=== PATIENT | female | born 1975 | race Caucasian/White ===

== ENCOUNTER 2016-09-22 07:02 | Emergency (ER) | payer OTHER ==
--- NOTE | 2016-09-22 10:18 | DIAGNOSTIC IMAGING REPORT ---
PROCEDURE: ABDOMEN/PELVIS WITH CONTRAST CLINICAL INDICATION: ABDOMINAL PAIN TECHNIQUE: 125 ml of Isovue 300 were injected intravenously and axial images were obtained of the abdomen and pelvis with sagittal and coronal reformations. COMPARISON: 03/04/2016 FINDINGS: ABDOMEN: Minor bibasilar atelectasis. Normal sized heart. No hiatal hernia. The liver, gallbladder, adrenal glands, kidneys, pancreas and spleen are normal. The abdominal aorta is normal in its course and caliber. No atherosclerosis. There are no suspicious calcifications, retroperitoneal adenopathy or masses. The stomach, upper bowel loops, and mesentery are normal. Intact anterior abdominal wall. Much of the descending colon just distal to the splenic flexure, into the proximal sigmoid colon demonstrates decompression, mild wall edema, minor pericolonic inflammatory changes and slight mucosal hyperemia. There is trace fascial thickening of the left pericolic gutter. No extraluminal gas or free fluid. No pericolonic fluid collection. There is a small amount of liquid stool in the rectum. PELVIS: The appendix and pelvic small bowel loops are normal. Normal amount of stool in the proximal colon in liquid stool in the rectum as described. The uterus, ovaries, urinary bladder, and pelvic vessels are normal. No adenopathy, free fluid, or pelvic mass. Mild degenerative changes in the lumbar facet joints and L5-S1 disc space. IMPRESSION: 1. Findings of mild left-sided colitis without focal diverticulitis. No evidence of complication (perforation, free fluid, or abscess). This is likely mild infectious colitis. 2. Discussed with Dr. Rolon in the emergency room. All CT scans at this facility use dose modulation, iterative reconstruction, and/or weight-based dosing when appropriate to reduce radiation dose to as low as reasonably achievable.
--- NOTE | 2016-09-22 10:33 | ED CLINICAL REPORT ---
Clinical Report - Physicians/Mid Levels [facility] [address] [place] [address] 09/22/2016 7:03 Patient: ALICE FERNANDEZ Time Seen: 07:18. Arrived- By private vehicle. Historian- patient. CPT: ER phys charges level 4 (#[id number]). HISTORY OF PRESENT ILLNESS Chief Complaint: ABDOMINAL PAIN. At its maximum, severity described as 10 / 10. When seen in the E.D., severity described as 9 / 10. Modifying factors- relieved by rest. This started last night and is still present. It was abrupt in onset and has been constant. It is described as "like gas pains" and it is described as located in the right flank and the left lower quadrant and in the lower abdomen and radiating to the low back. The patient has had nausea. She has had vomiting. The vomiting has occurred numerous times. No blood-tinged emesis or coffee-grounds emesis. She has had loose stools (last night). This has occurred only once. No bloody diarrhea. Similar symptoms previously: None. Recent medical care: Not recently seen/assessed. REVIEW OF SYSTEMS Last normal menstrual period was 3 weeks ago. 2. Para 1. Abortions 1. No fever, sore throat, chest pain or pain or difficulty breathing. No cough, joint pain, skin rash, chills or back pain. No fever, calf pain, cough, difficulty breathing or pedal edema. No palpitations, black stools, bloody stools or urinary problems. The patient has had chills and experienced sweats. All systems otherwise negative, except as recorded above. PAST HISTORY Primary physician ([place] [facility] Problems: Pharyngitis. Nausea. Influenza. Dental Abscess. Chest Wall Pain. Contusion. Dental Pain. Lifestyle / Substance Problems. Gastroenteritis. Gastritis. Vomiting. Diarrhea. Gastroesophageal Reflux. Peptic Ulcer Disease. Pneumonia. Bronchitis. Sinusitis. Otitis Media. Abdominal Pain. Skin Rash. Dental Caries. Corneal Abrasion. UTI - Urinary Tract Infection. Back Pain. Ovarian Cancer. Additional Surgeries: Cone biopsy. Dilatation & Curettage. Left eye surgery. Medications: None. Allergies: Codeine. Penicillins. SOCIAL HISTORY Current every day heavy tobacco smoker (cigarette)- 1-2 packs per day. History of drug use: methamphetamines, marijuana. Residence: [place]. FAMILY HISTORY maternal grandmother and mother had "ruptured bowels". ADDITIONAL NOTES The nursing notes have been reviewed. PHYSICAL EXAM Vital Signs: 09/22/2016 07:09 BP: 149/93. HR: 81. RR: 18. O2 saturation: 100%. Temp: 97.7 F. Pain level now: 11/16. Have been reviewed. Appearance: Alert. Appears to be in pain. Eyes: Pupils equal, round and reactive to light. ENT: Pharynx normal. Neck: Normal inspection. Neck supple. CVS: Normal heart rate and rhythm. Heart sounds normal. Respiratory: No respiratory distress. Breath sounds normal. Abdomen: Soft. Moderate tenderness in the left lower quadrant and lower abdomen. Abnormal bowel sounds: hyperactive. No organomegaly. No mass. Back: Normal inspection. No CVA tenderness. Skin: Skin warm and dry. Normal skin color. No rash. Normal skin turgor. Extremities: Extremities exhibit normal ROM. No lower extremity edema. Neuro: Oriented X 3. No motor deficit. No sensory deficit. LABS, X-RAYS, AND EKG Abdominal CT: Normal aorta. Normal liver, spleen, pancreas, adrenals and kidneys. Uterus normal. Adnexa normal. Bladder normal. No free fluid. No diverticulitis. Mild colitis of the descending colon. Abdominal CT performed with IV contrast. The study was independently viewed by me, interpreted by the radiologist and discussed with the radiologist. Laboratory Tests: UA-Culture if indicated: (L[place]: 09/22/2016 08:10) ( MsgRcvd 09/22/2016 08:33) Final results Test Result Flag Units (Reference) URINE COLOR YELLOW URINE APPEARANCE SL CLOUDY URINE GLUCOSE NEGATIVE (NEGATIVE) URINE BILIRUBIN NEGATIVE (NEGATIVE) URINE KETONE NEGATIVE (NEGATIVE) URINE SPECIFIC GRAVITY 1.010 (1.010-1.030) URINE PH 7.0 (5.0-8.0) URINE PROTEIN NEGATIVE (NEGATIVE) URINE UROBILINOGEN 0.2 EU/dL (0.2-1.0) URINE NITRITE NEGATIVE (NEGATIVE) URINE BLOOD TRACE-INTACT (NEGATIVE) URINE LEUK ESTERASE NEGATIVE (NEGATIVE) URINE RBC 0-1 rbc/hpf (0-1) URINE WBC 1-3 wbc/hpf (0-1) URINE EPITHELIAL CELLS >15 EPI/hpf (0-5) URINE BACTERIA FEW (1+) (NONE SEEN) URINE COMMENT CULT NOT INDICATED URINE CULTURES ARE SET-UP BASED ON THE FOLLOWING CRITERIA:POSITIVE NITRITEPOSITIVE LEUKOCYTE ESTERASEGREATER THAN 10 WHITE BLOOD CELLSMODERATE (2+) OR GREATER BACTERIA Urine: ([place]: 09/22/2016 08:10) ( [facility] Final results Test Result Flag Units (Reference) URINE NEGATIVE CBC w Diff: ([place]: 09/22/2016 07:25) ( [facility] 09/22/2016 07:37) Final results Test Result Flag Units (Reference) WHITE BLOOD COUNT 14.1 H K/uL (4.5-11.5) RED BLOOD COUNT 4.66 M/uL (4.00-5.20) HEMOGLOBIN 14.2 gm/dL (12.0-16.0) HEMATOCRIT 42.4 % (36.0-46.0) MEAN CELL VOLUME 91 fL (80-100) MEAN CORPUSCULAR HGB 31 pg (26-34) MEAN CORPUSCULAR HGB CONC 34 g/dL (31-37) RED CELL DISTRIBUTION WIDTH 13.1 % (11.6-14.8) PLATELET COUNT 313 K/uL (150-400) NEUTROPHIL % 80.1 H % (50-75) LYMPH % 11.7 L % (25-40) MONO % 6.7 % (3-14) EOSINOPHIL % 1.2 % (0-4) BASOPHIL % 0.3 % (0-2) Urine Drug Screen: ([place]: 09/22/2016 08:10) ( [facility]22[facility] 08[facility]35) Final results Test Result Flag Units (Reference) AMPHETAMINE/METHAMPHETAMINE POSITIVE H (NEGATIVE) BARBITURATE NEGATIVE (NEGATIVE) BENZODIAZEPINE NEGATIVE (NEGATIVE) CANNABINOID POSITIVE H (NEGATIVE) COCAINE NEGATIVE (NEGATIVE) ECSTASY POSITIVE H (NEGATIVE) METHADONE NEGATIVE (NEGATIVE) OPIATE NEGATIVE (NEGATIVE) The urine drug screen is a qualitative screening test fordrug overdose and abuse. All screen results should beconsidered as presumptive.Drugs screened for are as follows:BenzodiazepinesCocaineAmphetamines/MetamphetaminesTHC (Tetrahydrocannabinol)OpiatesBarbituratesEcstasyMethadonePositive results are unconfirmed. For confirmation, notifythe lab for the specimen to be sent to the reference lab.All confirmations must be performed by a differentmethodology.The ingestion of natural herbal and plant productscontaining Ephedra/Ephedra metabolites can produce in urineone or more substances capable of cross reacting withamphetamine/methamphetamine immunoassays. These testsprovide a preliminary result only. A more specificalternative chemical method must be used to obtain aconfirmed analytical result. Amylase: ([place]: 09/22/2016 07:25) ( MsgRcvd 09/22/2016 07:46) Final results Test Result Flag Units (Reference) GLUCOSE 112 H mg/dL (70-110) BUN 17 mg/dL (7-18) CREATININE 1.0 mg/dL (0.6-1.3) Estimated GFR >60 mL/min Estimated GFR- >60 mL/min Note: Persistent reduction over 3 months in eGFR<60 mL/min/1.73 m2 defines CKD. Patients with eGFR values>=60 mL/min/1.73 m2 may also have CKD if evidence ofpersistent proteinuria. Additional information may be foundat [email or web address].org. SODIUM 138 mmol/L (136-145) POTASSIUM 3.9 mmol/L (3.5-5.1) CHLORIDE 104 mmol/L (98-107) CARBON DIOXIDE 28 mmol/L (21-32) CALCIUM 8.7 mg/dL (8.5-10.1) TOTAL PROTEIN 7.3 g/dL (6.4-8.2) ALBUMIN 3.6 g/dL (3.3-5.0) BILIRUBIN, TOTAL 0.4 mg/dL (0.0-1.0) ALKALINE PHOSPHATASE 103 U/L (46-116) AST (SGOT) 16 U/L (15-37) ALT (SGPT) 24 U/L (12-78) LIPASE 134 U/L (73-393) AMYLASE 39 U/L (25-115) . PROGRESS AND PROCEDURES Course of Care: 09:22 09/22/16. The case was discussed with Dr. Rolon at change of shift. We reviewed the patient's history, physical examination findings and the results of her labs. The patient's CT scan is pending. Dr. Rolon will follow up the results of the study and will arrange an appropriate disposition for her. - MW 10:23 09/22/16. CT result called. 10:29 09/22/16. Pt examined and history taken. Pt feels better and thinks the diarrhea is slowing. That she ate out yesterday and a few hours later started feeling poorly. Because of the inflammatory changes in the descending colon, will give rx for antibiotics to use if not feeling better in the next 6 hours. IV fluids and zofran given in the ER. Feels better. Patient/family counseled. Disposition: Discharged. Condition: stable and improved. CLINICAL IMPRESSION Acute noninfectious gastroenteritis. Substance abuse- marijuana, methamphetamines. INSTRUCTIONS Do not work for two days until better. Take clear liquids only (frequent sips) for the next 6 hours until better. Advance diet as tolerated. Warnings: Further evaluation is necessary. GENERAL WARNINGS: Return or contact your physician immediately if your condition worsens or changes unexpectedly, if not improving as expected, or if other problems arise. Prescription Medications: Zofran (orally disintegrating tablets) 4 mg: take 1 orally every 6 hours as needed for nausea. Dispense ten (10). No refill. Substitution is permissible. Cipro 500 mg: take 1 tab orally every 12 hours for 10 days. Dispense twenty (20). No refills. Substitution is permissible. Metronidazole 500 mg: Take 1 tablet orally every 12 hours for 7 days. No refill. Follow-up: Follow up with your doctor in one week. Call for an appointment. Understanding of the discharge instructions verbalized by patient. (Electronically signed by Girma Rolon MD 09/23/2016 21:21)
--- NOTE | 2016-09-22 10:33 | ED NURSING NOTES ---
Clinical Report - Nurses [facility] [place] [place] [address] 09/22/2016 7:03 Patient: ALICE FERNANDEZ TRIAGE Acuity: LEVEL 3. Chief Complaint: ABDOMINAL PAIN, VOMITING and DIARRHEA. Alert. No acute distress. SEPSIS SCREEN: Sepsis Screen. Negative (no infection suspected/documented). --07:14 Lachelle Welch R.N. 07:09 09/22/16. BP: 149/93. HR: 81. RR: 18. O2 saturation: 100% on room air. Temp: 97.7 F (oral). Pain level now: 9/10. --07:14 Lachelle Welch R.N. Weight: 90.7 kg stated. Height/Length: 66 inches Per Patient. BMI: 32.3. --07:11 Lachelle Welch R.N. Medications None. --07:12 Lachelle Welch R.N. Medication/allergy information source: the patient. --07:14 Lachelle Welch R.N. Allergies Codeine. Penicillins. --07:12 Lachelle Welch R.N. History Arrived by private vehicle. Historian: patient. Accompanied by friend. Primary physician ([facility]). This started last night. Describes the quality as "pain" and sharp. Relates location as in the left lower quadrant and left pelvic area. Notes pain level as 9/10 on arrival and 10/10 at maximum. Reports last BM was last night. It is described as radiating to the low back. Treatment P[employer] BUILDER: None. SOCIAL HX: Heavy tobacco smoker- 1-2 packs per day. History of occasional drug use: methamphetamines, marijuana. No alcohol use. FALL RISK ASSESSMENT: Fall risk assessment completed. No fall risk identified. NUTRITIONAL RISK ASSESSMENT: The nutritional risk assessment revealed no deficiencies. FUNCTIONAL ASSESSMENT: Functional assessment: no impairments noted. LEARNING NEEDS ASSESSMENT: The learning needs assessment revealed no barriers. SKIN INTEGRITY ASSESSMENT: Skin integrity risk assessment completed. No skin integrity risk identified. --07:14 Lachelle Welch R.N. PROBLEMS: Pharyngitis. Nausea. Influenza. Dental Abscess. Chest Wall Pain. Contusion. Tetanus Status. Dental Pain. Lifestyle / Substance Problems. Gastroenteritis. Gastritis. Vomiting. Diarrhea. Gastroesophageal Reflux. Peptic Ulcer Disease. Pneumonia. Bronchitis. Sinusitis. Otitis Media. Abdominal Pain. Skin Rash. Dental Caries. Corneal Abrasion. Immunizations. . Back Pain. Ovarian Cancer. LNMP - Last Normal Menstrual Period. --07:13 Lachelle Welch R.N. ADDITIONAL SURGERIES: Cone biopsy. Dilatation & Curettage. Left eye surgery. --07:13 Lachelle Welch R.N. Assessment GENERAL / NEURO / PSYCH: Alert. Oriented X 4. Appears in no acute distress. Mayito Coma Scale: 15- eyes open spontaneously (4); best verbal response- oriented x 4 (5); best motor response- obeys commands (6). Patient appears calm and cooperative. RESPIRATORY: Respirations not labored. CVS: Capillary refill less than 2 seconds. GI / : Abdomen soft. SKIN: Mucous membranes are pink. Skin is warm and dry. --07:14 Lachelle Welch R.N. Interventions ID band on patient. To treatment room. --07:14 Lachelle Welch R.N. PHYSICAL ASSESSMENT Ambulatory to room. GENERAL / NEURO / PSYCH: Alert. Oriented X 4. Appears in no acute distress. HEENT: Mucous membranes are pink. RESPIRATORY: Respirations not labored. CVS: Capillary refill less than 2 seconds. GI / : Abdomen soft and nontender. SKIN: Skin is warm and dry. --:17 Lachelle Welch R.N. NURSING PROGRESS NOTES 07:14 09/22/16. Patient gowned. Two patient identifiers checked. Call light placed in reach. Side rails up x 1. Bed placed in lowest position. Brakes of bed on. Patient ready for evaluation- chart flagged and ED physician notified. --07:14 Lachelle Welch R.N. 07:30 09/22/2016 Site #1 started via IV in the right antecubital space with an 20g angiocath, with aseptic technique and good blood return; one attempt. Blood drawn: rainbow set. Labeled in the presence of the patient and sent to the lab. --07:30 Lachelle Welch R.N. 07:31 09/22/2016 Started bag #1 1000 mL IV Fluids IV NS (Saline); at 999 mL/hr over 1 hour(s) via site #1 via IV pump. Allergies verified and confirmed 5 rights. IV patency established. IV site checked: no pain, redness, or swelling. IV flushed thoroughly pre- and post-medication administration. --07:31 Lachelle Welch R.N. 07:31 09/22/2016 Zofran (Ondansetron HCl) IVP 4 mg given over 1 minute(s) via site #1. Allergies verified and confirmed 5 rights. IV patency established. IV site checked: no pain, redness, or swelling. IV flushed thoroughly pre- and post-medication administration. IVP given by RN. --07:31 Lachelle Welch R.N. Patient ID band checked for patient name and birthdate: patient confirmed. Instructions provided to collect clean catch urine and patient verbalized understanding. Clean catch urine collected with return of massimo-colored urine; sample sent to lab for urinalysis, culture and HCG. Specimen labeled in the presence of the patient. --08:15 Sveta Fleming ER TechJason 09:41 09/22/16. BP: 141/88. HR: 78. RR: 16. O2 saturation: 100% on room air. Temp: 98.1 F (oral). --09:41 Lachelle Welch R.N. DISPOSITION / DISCHARGE 10:37 09/22/16. BP: 138/95. HR: 80. RR: 18. O2 saturation: 100%. Temp: 98.1 F (oral). --10:38 Lachelle Welch R.N. Departure time: 10:38 Sep 22 2016. Condition at departure: improved and stable. No learning barriers present. Discharge instructions provided and reviewed with the patient. Reviewed medication(s) side effects, precautions, dosing and course information. Prescription(s) given to the patient. Patient verbalized understanding. Written instructions provided in Tajik. The patient was discharged by the physician. She was discharged home and accompanied by juvenile court liaison. She left the Emergency Department ambulatory and via private vehicle. Disability Case Manager driving. --10:38 Lachelle Welch R.N. 09:00 09/22/2016 IV Fluids IV NS Discontinued: bag #1 infused. Total amount infused: 1000 mL. IV patency established. IV site checked: no pain, redness, or swelling. IV flushed thoroughly. --10:43 Lachelle Welch R.N. 10:38 09/22/2016 Site #1 removed upon discharge. Catheter intact. Manual pressure and bandaid applied. --10:38 Lachelle Welch R.N. Locked/Released at 09/22/2016 10:44 by Lachelle Welch R.N.
--- NOTE | 2016-09-22 10:33 | ED ORDER SUMMARY ---
..... Patient: ALICE FERNANDEZ OrderSheet [facility] VisitID: [id number] [address] [place] [address] 40y, F Registration Date/Time: 09/22/2016 ORDER SHEET Weight: 90.7 kg (stated) Allergies: Codeine, Penicillins GENERAL ORDERS: CBC w Diff Urgent (07:20 09/22/2016 Saranya TAO) (Ack 7:21 Patsy) (7:31 MWinterer R.N.) CMP Urgent (07:09/22/2016 Saranya TAO) (Ack 7:21 Patsy) (7:31 MWinterer R.N.) UA-Culture if indicated Urgent (07:20 09/22/2016 Saranya TAO) (Ack 7:21 Patsy) (8:14 LNations ER Tech1) Amylase Urgent (07:20 09/22/2016 Saranya TAO) (Ack 7:21 Patsy) (7:31 MWinterer R.N.) Lipase Urgent (07:20 09/22/2016 Saranya TAO) (Ack 7:21 Patsy) (7:31 MWinterer R.N.) Urine Urgent (07:20 09/22/2016 Saranya TAO) (Ack 7:21 Patsy) (8:14 LNations ER Tech1) Urine Drug Screen Urgent (07:20 09/22/2016 Saranya TAO) (Ack 7:21 Patsy) (8:14 LNations ER Tech1) CT Abd/Pel w Cont (No) (See report) Urgent (08:49 09/22/2016 Saranya TAO) (Ack 8:52 Patsy) (9:39 MWinterer R.N.) MEDICATION ORDERS: IV FLUIDS: IV NS : initial bolus 1000 mL (1000 mL/hr), then 150 mL/hr for 4h (NOW); Urgent (07:20 09/22/2016 Saranya TAO) (Ack 7:20 MWinterer R.N.) (7:31 MWinterer R.N.) Zofran IV 4 mg (NOW) (07:20 09/22/2016 Saranya TAO) (Ack 7:20 MWinterer R.N.) (7:31 MWinterer R.N.) Dilaudid IV 0.5 mg (HIGH ALERT MEDICATION, NOW) (08:20 09/22/2016 Saranya TAO) (Ack 8:42 MWinterer R.N.) (Cancelled: Patient Refusal8:44 MWinterer R.N.) ORDER SHEET NOTES: [Electronically signed by Lachelle Welch R.N. (10:44 09/22/2016)] [Electronically signed by Girma Rolon MD (21:21 09/23/2016)] [Electronically locked/signed by Lachelle Welch R.N. (10:44 09/22/2016)]
--- NOTE | 2016-09-22 10:33 | ED ORDER SUMMARY ---
..... Patient: ALICE FERNANDEZ OrderSheet [facility] VisitID: [id number] [address] [place] [address] 40y, F Registration Date/Time: 09/22/2016 ORDER SHEET Weight: 90.7 kg (stated) Allergies: Codeine, Penicillins GENERAL ORDERS: CBC w Diff Urgent (07:20 09/22/2016 Saranya TAO) (Ack 7:21 Patsy) (7:31 MWinterer R.N.) CMP Urgent (07:09/22/2016 Saranya TAO) (Ack 7:21 Patsy) (7:31 MWinterer R.N.) UA-Culture if indicated Urgent (07:20 09/22/2016 Saranya TAO) (Ack 7:21 Patsy) (8:14 LNations ER Tech1) Amylase Urgent (07:20 09/22/2016 Saranya TAO) (Ack 7:21 Patsy) (7:31 MWinterer R.N.) Lipase Urgent (07:20 09/22/2016 Saranya TAO) (Ack 7:21 Patsy) (7:31 MWinterer R.N.) Urine Urgent (07:20 09/22/2016 Saranya TAO) (Ack 7:21 Patsy) (8:14 LNations ER Tech1) Urine Drug Screen Urgent (07:20 09/22/2016 Saranya TAO) (Ack 7:21 Patsy) (8:14 LNations ER Tech1) CT Abd/Pel w Cont (No) (See report) Urgent (08:49 09/22/2016 Saranya TAO) (Ack 8:52 Patsy) (9:39 MWinterer R.N.) MEDICATION ORDERS: IV FLUIDS: IV NS : initial bolus 1000 mL (1000 mL/hr), then 150 mL/hr for 4h (NOW); Urgent (07:20 09/22/2016 Saranya TAO) (Ack 7:20 MWinterer R.N.) (7:31 MWinterer R.N.) Zofran IV 4 mg (NOW) (07:20 09/22/2016 Saranya TAO) (Ack 7:20 MWinterer R.N.) (7:31 MWinterer R.N.) Dilaudid IV 0.5 mg (HIGH ALERT MEDICATION, NOW) (08:20 09/22/2016 Saranya TAO) (Ack 8:42 MWinterer R.N.) (Cancelled: Patient Refusal8:44 MWinterer R.N.) ORDER SHEET NOTES: [Electronically signed by Lachelle Welch R.N. (10:44 09/22/2016)] [Electronically signed by Girma Rolon MD (21:21 09/23/2016)] [Electronically locked/signed by Lachelle Welch R.N. (10:44 09/22/2016)]
--- NOTE | 2016-09-22 10:33 | ED CLINICAL REPORT ---
Clinical Report - Physicians/Mid Levels [facility] [address] [place] [address] 09/22/2016 7:03 Patient: ALICE FERNANDEZ Time Seen: 07:18. Arrived- By private vehicle. Historian- patient. CPT: ER phys charges level 4 (#[id number]). HISTORY OF PRESENT ILLNESS Chief Complaint: ABDOMINAL PAIN. At its maximum, severity described as 10 / 10. When seen in the E.D., severity described as 9 / 10. Modifying factors- relieved by rest. This started last night and is still present. It was abrupt in onset and has been constant. It is described as "like gas pains" and it is described as located in the right flank and the left lower quadrant and in the lower abdomen and radiating to the low back. The patient has had nausea. She has had vomiting. The vomiting has occurred numerous times. No blood-tinged emesis or coffee-grounds emesis. She has had loose stools (last night). This has occurred only once. No bloody diarrhea. Similar symptoms previously: None. Recent medical care: Not recently seen/assessed. REVIEW OF SYSTEMS Last normal menstrual period was 3 weeks ago. 2. Para 1. Abortions 1. No fever, sore throat, chest pain or pain or difficulty breathing. No cough, joint pain, skin rash, chills or back pain. No fever, calf pain, cough, difficulty breathing or pedal edema. No palpitations, black stools, bloody stools or urinary problems. The patient has had chills and experienced sweats. All systems otherwise negative, except as recorded above. PAST HISTORY [facility] physician ([place] [facility] Problems: Pharyngitis. Nausea. Influenza. Dental Abscess. Chest Wall Pain. Contusion. Dental Pain. Lifestyle / Substance Problems. Gastroenteritis. Gastritis. Vomiting. Diarrhea. Gastroesophageal Reflux. Peptic Ulcer Disease. Pneumonia. Bronchitis. Sinusitis. Otitis Media. Abdominal Pain. Skin Rash. Dental Caries. Corneal Abrasion. UTI - Urinary Tract Infection. Back Pain. Ovarian Cancer. Additional Surgeries: Cone biopsy. Dilatation & Curettage. Left eye surgery. Medications: None. Allergies: Codeine. Penicillins. SOCIAL HISTORY Current every day heavy tobacco smoker (cigarette)- 1-2 packs per day. History of drug use: methamphetamines, marijuana. Residence: [place]. FAMILY HISTORY maternal grandmother and mother had "ruptured bowels". ADDITIONAL NOTES The nursing notes have been reviewed. PHYSICAL EXAM Vital Signs: 09/22/2016 07:09 BP: 149/93. HR: 81. RR: 18. O2 saturation: 100%. Temp: 97.7 F. Pain level now: 11/16. Have been reviewed. Appearance: Alert. Appears to be in pain. Eyes: Pupils equal, round and reactive to light. ENT: Pharynx normal. Neck: Normal inspection. Neck supple. CVS: Normal heart rate and rhythm. Heart sounds normal. Respiratory: No respiratory distress. Breath sounds normal. Abdomen: Soft. Moderate tenderness in the left lower quadrant and lower abdomen. Abnormal bowel sounds: hyperactive. No organomegaly. No mass. Back: Normal inspection. No CVA tenderness. Skin: Skin warm and dry. Normal skin color. No rash. Normal skin turgor. Extremities: Extremities exhibit normal ROM. No lower extremity edema. Neuro: Oriented X 3. No motor deficit. No sensory deficit. LABS, X-RAYS, AND EKG Abdominal CT: Normal aorta. Normal liver, spleen, pancreas, adrenals and kidneys. Uterus normal. Adnexa normal. Bladder normal. No free fluid. No diverticulitis. Mild colitis of the descending colon. Abdominal CT performed with IV contrast. The study was independently viewed by me, interpreted by the radiologist and discussed with the radiologist. Laboratory Tests: UA-Culture if indicated: ([place]: 09/22/2016 08:10) ( MsgRcvd 09/22/2016 08:33) Final results Test Result Flag Units (Reference) URINE COLOR YELLOW URINE APPEARANCE SL CLOUDY URINE GLUCOSE NEGATIVE (NEGATIVE) URINE BILIRUBIN NEGATIVE (NEGATIVE) URINE KETONE NEGATIVE (NEGATIVE) URINE SPECIFIC GRAVITY 1.010 (1.010-1.030) URINE PH 7.0 (5.0-8.0) URINE PROTEIN NEGATIVE (NEGATIVE) URINE UROBILINOGEN 0.2 EU/dL (0.2-1.0) URINE NITRITE NEGATIVE (NEGATIVE) URINE BLOOD TRACE-INTACT (NEGATIVE) URINE LEUK ESTERASE NEGATIVE (NEGATIVE) URINE RBC 0-1 rbc/hpf (0-1) URINE WBC 1-3 wbc/hpf (0-1) URINE EPITHELIAL CELLS >15 EPI/hpf (0-5) URINE BACTERIA FEW (1+) (NONE SEEN) URINE COMMENT CULT NOT INDICATED URINE CULTURES ARE SET-UP BASED ON THE FOLLOWING CRITERIA:POSITIVE NITRITEPOSITIVE LEUKOCYTE ESTERASEGREATER THAN 10 WHITE BLOOD CELLSMODERATE (2+) OR GREATER BACTERIA Urine: ([place]: 09/22/2016 08:10) ( [facility] 09/22/2016 08:20) Final results Test Result Flag Units (Reference) URINE NEGATIVE CBC w Diff: ([place]: 09/22/2016 07:25) ( [facility] 09/22/2016 07:37) Final results Test Result Flag Units (Reference) WHITE BLOOD COUNT 14.1 H K/uL (4.5-11.5) RED BLOOD COUNT 4.66 M/uL (4.00-5.20) HEMOGLOBIN 14.2 gm/dL (12.0-16.0) HEMATOCRIT 42.4 % (36.0-46.0) MEAN CELL VOLUME 91 fL (80-100) MEAN CORPUSCULAR HGB 31 pg (26-34) MEAN CORPUSCULAR HGB CONC 34 g/dL (31-37) RED CELL DISTRIBUTION WIDTH 13.1 % (11.6-14.8) PLATELET COUNT 313 K/uL (150-400) NEUTROPHIL % 80.1 H % (50-75) LYMPH % 11.7 L % (25-40) MONO % 6.7 % (3-14) EOSINOPHIL % 1.2 % (0-4) BASOPHIL % 0.3 % (0-2) Urine Drug Screen: ([place]: 09/22/2016 08:10) ( [facility] 09/22/2016 08:35) Final results Test Result Flag Units (Reference) AMPHETAMINE/METHAMPHETAMINE POSITIVE H (NEGATIVE) BARBITURATE NEGATIVE (NEGATIVE) BENZODIAZEPINE NEGATIVE (NEGATIVE) CANNABINOID POSITIVE H (NEGATIVE) COCAINE NEGATIVE (NEGATIVE) ECSTASY POSITIVE H (NEGATIVE) METHADONE NEGATIVE (NEGATIVE) OPIATE NEGATIVE (NEGATIVE) The urine drug screen is a qualitative screening test fordrug overdose and abuse. All screen results should beconsidered as presumptive.Drugs screened for are as follows:BenzodiazepinesCocaineAmphetamines/MetamphetaminesTHC (Tetrahydrocannabinol)OpiatesBarbituratesEcstasyMethadonePositive results are unconfirmed. For confirmation, notifythe lab for the specimen to be sent to the reference lab.All confirmations must be performed by a differentmethodology.The ingestion of natural herbal and plant productscontaining Ephedra/Ephedra metabolites can produce in urineone or more substances capable of cross reacting withamphetamine/methamphetamine immunoassays. These testsprovide a preliminary result only. A more specificalternative chemical method must be used to obtain aconfirmed analytical result. Amylase: ([place]: 09/22/2016 07:25) ( MsgRcvd 09/22/2016 07:46) Final results Test Result Flag Units (Reference) GLUCOSE 112 H mg/dL (70-110) BUN 17 mg/dL (7-18) CREATININE 1.0 mg/dL (0.6-1.3) Estimated GFR >60 mL/min Estimated GFR- >60 mL/min Note: Persistent reduction over 3 months in eGFR<60 mL/min/1.73 m2 defines CKD. Patients with eGFR values>=60 mL/min/1.73 m2 may also have CKD if evidence ofpersistent proteinuria. Additional information may be foundat www.kidney.org. SODIUM 138 mmol/L (136-145) POTASSIUM 3.9 mmol/L (3.5-5.1) CHLORIDE 104 mmol/L (98-107) CARBON DIOXIDE 28 mmol/L (21-32) CALCIUM 8.7 mg/dL (8.5-10.1) TOTAL PROTEIN 7.3 g/dL (6.4-8.2) ALBUMIN 3.6 g/dL (3.3-5.0) BILIRUBIN, TOTAL 0.4 mg/dL (0.0-1.0) ALKALINE PHOSPHATASE 103 U/L (46-116) AST (SGOT) 16 U/L (15-37) ALT (SGPT) 24 U/L (12-78) LIPASE 134 U/L (73-393) AMYLASE 39 U/L (25-115) . PROGRESS AND PROCEDURES Course of Care: 09:22 09/22/16. The case was discussed with Dr. Rolon at change of shift. We reviewed the patient's history, physical examination findings and the results of her labs. The patient's CT scan is pending. Dr. Rolon will follow up the results of the study and will arrange an appropriate disposition for her. - MW 10:23 09/22/16. CT result called. 10:29 09/22/16. Pt examined and history taken. Pt feels better and thinks the diarrhea is slowing. That she ate out yesterday and a few hours later started feeling poorly. Because of the inflammatory changes in the descending colon, will give rx for antibiotics to use if not feeling better in the next 6 hours. IV fluids and zofran given in the ER. Feels better. Patient/family counseled. Disposition: Discharged. Condition: stable and improved. CLINICAL IMPRESSION Acute noninfectious gastroenteritis. Substance abuse- marijuana, methamphetamines. INSTRUCTIONS Do not work for two days until better. Take clear liquids only (frequent sips) for the next 6 hours until better. Advance diet as tolerated. Warnings: Further evaluation is necessary. GENERAL WARNINGS: Return or contact your physician immediately if your condition worsens or changes unexpectedly, if not improving as expected, or if other problems arise. Prescription Medications: Zofran (orally disintegrating tablets) 4 mg: take 1 orally every 6 hours as needed for nausea. Dispense ten (10). No refill. Substitution is permissible. Cipro 500 mg: take 1 tab orally every 12 hours for 10 days. Dispense twenty (20). No refills. Substitution is permissible. Metronidazole 500 mg: Take 1 tablet orally every 12 hours for 7 days. No refill. Follow-up: Follow up with your doctor in one week. Call for an appointment. Understanding of the discharge instructions verbalized by patient. (Electronically signed by Girma Rolon MD 09/23/2016 21:21)
--- NOTE | 2016-09-22 10:33 | ED NURSING NOTES ---
Clinical Report - Nurses [facility] [place] [address] [address] 09/22/2016 7:03 Patient: ALICE FERNANDEZ TRIAGE Acuity: LEVEL 3. Chief Complaint: ABDOMINAL PAIN, VOMITING and DIARRHEA. Alert. No acute distress. SEPSIS SCREEN: Sepsis Screen. Negative (no infection suspected/documented). --07:14 Lachelle Welch R.N. 07:09 09/22/16. BP: 149/93. HR: 81. RR: 18. O2 saturation: 100% on room air. Temp: 97.7 F (oral). Pain level now: 9/10. --07:14 Lachelle Welch R.N. Weight: 90.7 kg stated. Height/Length: 66 inches Per Patient. BMI: 32.3. --07:11 Lachelle Welch R.N. Medications None. --07:12 Lachelle Welch R.N. Medication/allergy information source: the patient. --07:14 Lachelle Welch R.N. Allergies Codeine. Penicillins. --07:12 Lachelle Welch R.N. History Arrived by private vehicle. Historian: patient. Accompanied by friend. Primary physician ([facility]). This started last night. Describes the quality as "pain" and sharp. Relates location as in the left lower quadrant and left pelvic area. Notes pain level as 9/10 on arrival and 10/10 at maximum. Reports last BM was last night. It is described as radiating to the low back. Treatment PROJECT MANAGER PROCESS DEVELOPMENT: None. SOCIAL HX: Heavy tobacco smoker- 1-2 packs per day. History of occasional drug use: methamphetamines, marijuana. No alcohol use. FALL RISK ASSESSMENT: Fall risk assessment completed. No fall risk identified. NUTRITIONAL RISK ASSESSMENT: The nutritional risk assessment revealed no deficiencies. FUNCTIONAL ASSESSMENT: Functional assessment: no impairments noted. LEARNING NEEDS ASSESSMENT: The learning needs assessment revealed no barriers. SKIN INTEGRITY ASSESSMENT: Skin integrity risk assessment completed. No skin integrity risk identified. --07:14 Lachelle Welch R.N. PROBLEMS: Pharyngitis. Nausea. Influenza. Dental Abscess. Chest Wall Pain. Contusion. Tetanus Status. Dental Pain. Lifestyle / Substance Problems. Gastroenteritis. Gastritis. Vomiting. Diarrhea. Gastroesophageal Reflux. Peptic Ulcer Disease. Pneumonia. Bronchitis. Sinusitis. Otitis Media. Abdominal Pain. Skin Rash. Dental Caries. Corneal Abrasion. Immunizations. . Back Pain. Ovarian Cancer. LNMP - Last Normal Menstrual Period. --07:13 Lachelle Welch R.N. ADDITIONAL SURGERIES: Cone biopsy. Dilatation & Curettage. Left eye surgery. --07:13 Lachelle Welch R.N. Assessment GENERAL / NEURO / PSYCH: Alert. Oriented X 4. Appears in no acute distress. Mayito Coma Scale: 15- eyes open spontaneously (4); best verbal response- oriented x 4 (5); best motor response- obeys commands (6). Patient appears calm and cooperative. RESPIRATORY: Respirations not labored. CVS: Capillary refill less than 2 seconds. GI / : Abdomen soft. SKIN: Mucous membranes are pink. Skin is warm and dry. --07:14 Lachelle Welch R.N. Interventions ID band on patient. To treatment room. --07:14 Lachelle Welch R.N. PHYSICAL ASSESSMENT Ambulatory to room. GENERAL / NEURO / PSYCH: Alert. Oriented X 4. Appears in no acute distress. HEENT: Mucous membranes are pink. RESPIRATORY: Respirations not labored. CVS: Capillary refill less than 2 seconds. GI / : Abdomen soft and nontender. SKIN: Skin is warm and dry. --:17 Lachelle Welch R.N. NURSING PROGRESS NOTES 07:14 09/22/16. Patient gowned. Two patient identifiers checked. Call light placed in reach. Side rails up x 1. Bed placed in lowest position. Brakes of bed on. Patient ready for evaluation- chart flagged and ED physician notified. --07:14 Lachelle Welch R.N. 07:30 09/22/2016 Site #1 started via IV in the right antecubital space with an 20g angiocath, with aseptic technique and good blood return; one attempt. Blood drawn: rainbow set. Labeled in the presence of the patient and sent to the lab. --07:30 Lachelle Welch R.N. 07:31 09/22/2016 Started bag #1 1000 mL IV Fluids IV NS (Saline); at 999 mL/hr over 1 hour(s) via site #1 via IV pump. Allergies verified and confirmed 5 rights. IV patency established. IV site checked: no pain, redness, or swelling. IV flushed thoroughly pre- and post-medication administration. --07:31 Lachelle Welch R.N. 07:31 09/22/2016 Zofran (Ondansetron HCl) IVP 4 mg given over 1 minute(s) via site #1. Allergies verified and confirmed 5 rights. IV patency established. IV site checked: no pain, redness, or swelling. IV flushed thoroughly pre- and post-medication administration. IVP given by RN. --07:31 Lachelle Welch R.N. Patient ID band checked for patient name and birthdate: patient confirmed. Instructions provided to collect clean catch urine and patient verbalized understanding. Clean catch urine collected with return of massimo-colored urine; sample sent to lab for urinalysis, culture and HCG. Specimen labeled in the presence of the patient. --08:15 Sveta Fleming ER TechJason 09:41 09/22/16. BP: 141/88. HR: 78. RR: 16. O2 saturation: 100% on room air. Temp: 98.1 F (oral). --09:41 Lachelle Welch R.N. DISPOSITION / DISCHARGE 10:37 09/22/16. BP: 138/95. HR: 80. RR: 18. O2 saturation: 100%. Temp: 98.1 F (oral). --10:38 Lachelle Welch R.N. Departure time: 10:38 Sep 22 2016. Condition at departure: improved and stable. No learning barriers present. Discharge instructions provided and reviewed with the patient. Reviewed medication(s) side effects, precautions, dosing and course information. Prescription(s) given to the patient. Patient verbalized understanding. Written instructions provided in [place]. The patient was discharged by the physician. She was discharged home and accompanied by rippler. She left the Emergency Department ambulatory and via private vehicle. Pump Operator Byproducts driving. --10:38 Lachelle Welch R.N. 09:00 09/22/2016 IV Fluids IV NS Discontinued: bag #1 infused. Total amount infused: 1000 mL. IV patency established. IV site checked: no pain, redness, or swelling. IV flushed thoroughly. --10:43 Lachelle Welch R.N. 10:38 09/22/2016 Site #1 removed upon discharge. Catheter intact. Manual pressure and bandaid applied. --10:38 Lachelle Welch R.N. Locked/Released at 09/22/2016 10:44 by Lachelle Welch R.N.
--- NOTE | 2016-09-23 21:21 | ED MAR SUMMARY ---
..... Medication Administration Record [facility] [address] [place] [address] Patient: ALICE FERNANDEZ Visit ID: [id number] 40y, F Weight: 90.7 kg Height/Length: 66 in BMI: 32.3 ALLERGIES: Codeine, Penicillins Start 07:31 09/22/2016 Lachelle Welch R.N., Stop 09:00 09/22/2016 Lachelle Welch R.N. Medication Administered: IV NS (SALINE), Dose: IV Fluids over 1 hour(s), Rate: 999 mL/hr, Dispensed: 1000 mL bag, Site: #1 right AC. Medication Ordered: IV NS : initial bolus 1000 mL (1000 mL/hr), then 150 mL/hr for 4h (NOW); Urgent. Given 07:31 09/22/2016 Lachelle Welch R.N. Medication Administered: ZOFRAN [IVP] (ONDANSETRON HCL), Dose: 4 mg IVP over 1 minute(s), Site: #1 right AC. Medication Ordered: Zofran IV 4 mg (NOW).
--- NOTE | 2016-09-23 21:21 | ED MED RECONCILIATION SUMMARY ---
Patient: ALICE FERNANDEZ Medication Reconciliation Report [facility] VisitID: [id number] [address] [place] [address] 40y, F Registration Date/Time: 09/22/2016 Weight: 90.7 kg Height/Length: 66 in. BMI: 32.3 ALLERGIES: Codeine, Penicillins The patient's Home Medications are listed below: NONE. The source(s) of the original Home Medication information: patient The following Medications were given to the patient in the Emergency Department: IV NS IV Fluids bolus 0, then 999 mL/hr, administered: 09/22/2016 7:31:00 AM Zofran [IVP] IVP 4 mg, administered: 09/22/2016 7:31:00 AM The following Medications were prescribed to the patient: Zofran (orally disintegrating tablets) 4 mg: take 1 orally every 6 hours as needed for nausea. Dispense ten (10). No refill. Substitution is permissible. -- Girma Rolon MD Cipro 500 mg: take 1 tab orally every 12 hours for 10 days. Dispense twenty (20). No refills. Substitution is permissible. -- Girma Rolon MD Metronidazole 500 mg: Take 1 tablet orally every 12 hours for 7 days. No refill. -- Girma Rolon MD
--- NOTE | 2016-09-23 21:21 | ED MED RECONCILIATION SUMMARY ---
Patient: ALICE FERNANDEZ Medication Reconciliation Report [facility] VisitID: [id number] [address] [place] [address] 40y, F Registration Date/Time: 09/22/2016 Weight: 90.7 kg Height/Length: 66 in. BMI: 32.3 ALLERGIES: Codeine, Penicillins The patient's Home Medications are listed below: NONE. The source(s) of the original Home Medication information: patient The following Medications were given to the patient in the Emergency Department: IV NS IV Fluids bolus 0, then 999 mL/hr, administered: 09/22/2016 7:31:00 AM Zofran [IVP] IVP 4 mg, administered: 09/22/2016 7:31:00 AM The following Medications were prescribed to the patient: Zofran (orally disintegrating tablets) 4 mg: take 1 orally every 6 hours as needed for nausea. Dispense ten (10). No refill. Substitution is permissible. -- Girma Rolon MD Cipro 500 mg: take 1 tab orally every 12 hours for 10 days. Dispense twenty (20). No refills. Substitution is permissible. -- Girma Rolon MD Metronidazole 500 mg: Take 1 tablet orally every 12 hours for 7 days. No refill. -- Girma Rolon MD
--- NOTE | 2016-09-23 21:21 | ED DISCHARGE INSTRUCTIONS ---
Patient: ALICE FERNANDEZ General Instructions [facility] VisitID: [id number] [address] [place] [address] 40y, F Registration Date/Time: 09/22/2016 Acute noninfectious gastroenteritis. Substance abuse- marijuana, methamphetamines. INSTRUCTIONS Do not work for two days until better. Take clear liquids only (frequent sips) for the next 6 hours until better. Advance diet as tolerated. Warnings: Further evaluation is necessary. GENERAL WARNINGS: Return or contact your physician immediately if your condition worsens or changes unexpectedly, if not improving as expected, or if other problems arise. Prescription Medications: Zofran (orally disintegrating tablets) 4 mg: take 1 orally every 6 hours as needed for nausea. Dispense ten (10). No refill. Substitution is permissible. Cipro 500 mg: take 1 tab orally every 12 hours for 10 days. Dispense twenty (20). No refills. Substitution is permissible. Metronidazole 500 mg: Take 1 tablet orally every 12 hours for 7 days. No refill. Follow-up: Follow up with your doctor in one week. Call for an appointment. Understanding of the discharge instructions verbalized by patient. ADDITIONAL INFORMATION Food Poisoning Or Viral Gastroenteritis (6Yr-Adult) You have a stomach illness that is likely either food poisoning or viral gastroenteritis. Food poisoning occurs from1 to 24 hours after eating contaminated food and lasts up to 1 to 2 days. Viral gastroenteritis is commonly known as the stomach flu. It may last up to a week. Symptoms of both illnesses may include vomiting, diarrhea, fever, and stomach cramping. Antibiotics are not an effective treatment for either problem, but simple home treatment can give relief. Home Care: If symptoms are severe, rest at home for the next 24 hours. You may use acetaminophen (Tylenol) or ibuprofen (Motrin, Advil) to control fever, unless another medication was prescribed. [NOTE: If you have chronic liver or kidney disease or ever had a stomach ulcer or GI bleeding, talk with your doctor before using these medications. Do not give aspirin to anyone under 18 years of age who is ill with a fever.] Avoid tobacco and alcohol consumption. These may worsen your symptoms. If medicines for diarrhea or vomiting were prescribed, take these only as directed. Never take these without a healthcare providers approval. During the first12 to 24hours follow the diet below: BEVERAGES: Sport drinks like Gatorade, soft drinks without caffeine; alejandra abilio, mineral water (plain or flavored), decaffeinated tea and coffee. SOUPS: Clear broth, consomm and bouillon DESSERTS: Plain gelatin (Jell-O), popsicles and fruit juice bars. During the next 24 hours you may add the following to the above: Hot cereal, plain toast, bread, rolls, crackers Plain noodles, rice, mashed potatoes, chicken noodle or rice soup Unsweetened canned fruit (avoid pineapple), bananas Limit fat intake to less than 15 grams per day by avoiding margarine, butter, oils, mayonnaise, sauces, gravies, fried foods, peanut butter, meat, poultry, and fish. Limit fiber; avoid raw or cooked vegetables, fresh fruits (except bananas) and bran cereals. Limit caffeine and chocolate. No spices or seasonings except salt. Gradually resume a normal diet as you feel better and your symptoms lessen. Follow Up with your doctor as advised if you are not better in 2 days. If a stool (diarrhea) sample was taken, you may call in 2 days (or as directed) for the results. Get Prompt Medical Attention if any of the following occur: Increasing abdominal pain or constant lower right abdominal pain Continued vomiting (unable to keep liquids down) Frequent diarrhea (more than 5 times a day) Blood in vomit or stool (black or red color) Signs of dehydration: increased thirst, dark urine, reduced or no urine output, dry mouth and tongue, tireness or weakness, dizziness when standing, rapid breathinng New rash Fever of 100.4F (38C) oral or higher, not better with fever medication Drug Abuse Use and abuse of such drugs as marijuana, amphetamines (speed, crank), cocaine, heroin or prescription pain medicines (Vicodin, codeine), sedatives and sleeping pills (Valium, Klonopin), PCP, mescaline and LSD may lead to addiction or dependence. Once this occurs, you are at greater risk for any of the following: Craving for the drug and unable to stop using the drug even though you think you want to stop (psychological dependence) Drug withdrawal symptoms if you stop taking the drug (physical dependence) Loss of your job or your family Arrest, conviction and fci sentence for possession of an illegal substance or for driving under the influence of such a substance Accidental injuries to yourself or others while you are under the influence of the drug (in a car or at home). HIV infection (much greater risk if you use IV drugs) Other sexually transmitted diseases (herpes, chlamydia, gonorrhea and others) Severe and fatal infection of the heart valves (if you use IV drugs) Stroke, heart attack, hepatitis B or C, kidney failure from overdose Home Care: Admit you have a drug problem. Ask for help from your family and close friends. Seek professional help. This could be in the form of individual psychotherapy or counseling or an outpatient, inpatient, or residential drug treatment program. Join a self-help group for drug abuse. Avoid friends who abuse drugs themselves or tempt you to continue abusing drugs. Eat a balanced diet and begin a regular exercise program. Follow Up with your doctor or as advised by our staff. Contact one of the resources below for help. National [place] on Alcoholism and Drug Dependence www.ncadd.org 588-776-MUOX Narcotics Anonymous www.na.org 631-319-5839 National Alcohol and Substance Abuse Information Center (for referral to treatment programs) www.addictioncareAnulex.[employer] 929-753-2184 Get Prompt Medical Attention if any of the following occur: Agitation, anxiety, unable to sleep Unintended weight loss (more than 10 to 15 pounds over 3 months) Seizure Chest pain Fever of 100.4F (38C) or higher, or as directed by your healthcare provider Excess drowsiness or inability to be awakened Shortness of breath Slow breathing under 8 breaths per minute Cough with colored sputum Redness, swelling or tenderness at an injection site Marijuana Abuse Marijuana is the most widely used illegal drug in the [place]. It is called by various names such as pot, weed, blunts, grass, reefer, ganja, hash, hashish. It is usually smoked but can be mixed with foods or brewed as a tea. It is sometimes sold with PCP (Eliceo Dust) or amphetamine mixed in it. These drugs can cause other harmful side effects. Marijuana can cause the following effects: Changes in mood (stimulated, happy, drowsy, depressed, paranoid) Hallucinations Increased heart rate and blood pressure Increased appetite Time distortion, difficulty concentrating, impaired memory Lung damage (similar to cigarettes with chronic cough, wheezing, frequent colds and bronchitis) You can become psychologically dependent on marijuana. That means the craving to use the drug is emotional or psychological rather than due to physical withdrawal. Is Marijuana Running Your Life? Here are some of the signs: Relying on marijuana to feel good, forget problems, deal with stress or to relax Wanting to be alone most of the time or only with others who use drugs Losing interest in things that used to be important Changes in school or job performance or attendance Spending a lot of time thinking about how to get marijuana Stealing or selling your things so you can buy marijuana Unable to stop using even though you may want to quit Increasing anxiety, anger,or depression Sleeping too much, changes in eating habits (weight loss or gain) Needing to use more to get the same effect Home Care Once you have become addicted to any drug, quitting is hard to do. Most people find they can't quit without help. So, dont try to do this alone. Talk to someone you trust who can support you. Seek professional help. Avoid people and places where drugs are used. That only increases the temptation to use. Follow Up with your doctor or as advised by our staff. For more information or a referral to a treatment center in your area, contact: Your local mental health center or the National Alcohol and Substance Abuse Information Center (580)-883-3408 www.addictioncareoptions.com National [place] on Alcoholism and Drug Dependence 553-804-EUMG www.ncadd.org Marijuana Anonymous 315-535-2793 www.marijuana-anonymous.org Get Prompt Medical Attention if any of the following occur: You feel extreme depression, fear, anxiety, or anger toward yourself or others You feel out of control You feel that you may try to harm yourself or another Clear Liquid Diet Clear liquids are any liquid that you can see through as well as those that are very easy to digest. This is used while the body is recovering from irritation or infection of the stomach or intestinal tract. It may also be used before special procedures or surgery. This diet is to be used no more than three days. You may include the following items. Adults Adults should drink a total of 23 quarts of liquid per day. It may be easier to drink small frequent servings rather than a few large ones. Liquids can include: Fruit juices.Strained orange juice or lemonade (no pulp), apple, grape and cranberry juice, clear fruit drinks, sports drinks Beverages.Sport drinks, sodas, mineral water (plain or flavored), tea, black coffee, liquid gelatin (add twice the recommended amount of water) Soups.Clear broth, consomm, bouillon Desserts.Plain gelatin, popsicles, fruit juice bars Children Over 2 years old The following liquids are acceptable for children over age 2: Fruit juices.Strained orange juice or lemonade (no pulp), apple, grape and cranberry juice, clear fruit drinks Beverages. Sports drinks, sodas, mineral water (plain or flavored), tea, liquid gelatin (add twice the recommended amount of water) Soups. Clear broth, consomm, bouillon Desserts. Plain gelatin, popsicles, fruit juice bars Children under 2 years old Oral rehydration fluids such are available at drug stores and most grocery stores without a prescription. Ondansetron Oral disintegrating tablet What is this medicine? ONDANSETRON (on KI se sherin) is used to treat nausea and vomiting caused by chemotherapy. It is also used to prevent or treat nausea and vomiting after surgery. How should I use this medicine? These tablets are made to dissolve in the mouth. Do not try to push the tablet through the foil backing. With dry hands, peel away the foil backing and gently remove the tablet. Place the tablet in the mouth and allow it to dissolve, then swallow. While you may take these tablets with water, it is not necessary to do so. Talk to your biochemistry technologist regarding the use of this medicine in children. Special care may be needed. What side effects may I notice from receiving this medicine? Side effects that you should report to your doctor or health memory care program resident as soon as possible: allergic reactions like skin rash, itching or hives, swelling of the face, lips, or tongue breathing problems dizziness fast or irregular heartbeat feeling faint or lightheaded, falls fever and chills swelling of the hands and feet tightness in the chest Side effects that usually do not require medical attention (report to your doctor or health memory care program resident if they continue or are bothersome): constipation or diarrhea headache What may interact with this medicine? Do not take this medicine with any of the following medications: -apomorphine -cisapride -dofetilide -dronedarone -pimozide -thioridazine -ziprasidone This medicine may also interact with the following medications: -carbamazepine -phenytoin -rifampicin -tramadol -other medicines that prolong the QT interval (cause an abnormal heart rhythm) What if I miss a dose? If you miss a dose, take it as soon as you can. If it is almost time for your next dose, take only that dose. Do not take double or extra doses. Where should I keep my medicine? Keep out of the reach of children. Store between 2 and 30 degrees C (36 and 86 degrees F). Throw away any unused medicine after the expiration date. What should I tell my health care provider before I take this medicine? They need to know if you have any of these conditions: heart disease history of irregular heartbeat liver disease low levels of magnesium or potassium in the blood an unusual or allergic reaction to ondansetron, granisetron, other medicines, foods, dyes, or preservatives or trying to get breast-feeding What should I watch for while using this medicine? Check with your doctor or health memory care program resident as soon as you can if you have any sign of an allergic reaction. You have been given the following additional information: Food Poisoning Or Gastroenteritis (6Y-Adult) Drug Abuse Marijuana Abuse Diet, Clear Liquid Ondansetron Oral disintegrating tablet Do not work for two days until better. (Electronically signed by Girma Rolon MD 09/23/2016 21:21)
--- NOTE | 2016-09-23 21:21 | ED DISCHARGE INSTRUCTIONS ---
Patient: ALICE FERNANDEZ General Instructions [facility] VisitID: [id number] [address] [place] [address] 40y, F Registration Date/Time: 09/22/2016 Acute noninfectious gastroenteritis. Substance abuse- marijuana, methamphetamines. INSTRUCTIONS Do not work for two days until better. Take clear liquids only (frequent sips) for the next 6 hours until better. Advance diet as tolerated. Warnings: Further evaluation is necessary. GENERAL WARNINGS: Return or contact your physician immediately if your condition worsens or changes unexpectedly, if not improving as expected, or if other problems arise. Prescription Medications: Zofran (orally disintegrating tablets) 4 mg: take 1 orally every 6 hours as needed for nausea. Dispense ten (10). No refill. Substitution is permissible. Cipro 500 mg: take 1 tab orally every 12 hours for 10 days. Dispense twenty (20). No refills. Substitution is permissible. Metronidazole 500 mg: Take 1 tablet orally every 12 hours for 7 days. No refill. Follow-up: Follow up with your doctor in one week. Call for an appointment. Understanding of the discharge instructions verbalized by patient. ADDITIONAL INFORMATION Food Poisoning Or Viral Gastroenteritis (6Yr-Adult) You have a stomach illness that is likely either food poisoning or viral gastroenteritis. Food poisoning occurs from1 to 24 hours after eating contaminated food and lasts up to 1 to 2 days. Viral gastroenteritis is commonly known as the stomach flu. It may last up to a week. Symptoms of both illnesses may include vomiting, diarrhea, fever, and stomach cramping. Antibiotics are not an effective treatment for either problem, but simple home treatment can give relief. Home Care: If symptoms are severe, rest at home for the next 24 hours. You may use acetaminophen (Tylenol) or ibuprofen (Motrin, Advil) to control fever, unless another medication was prescribed. [NOTE: If you have chronic liver or kidney disease or ever had a stomach ulcer or GI bleeding, talk with your doctor before using these medications. Do not give aspirin to anyone under 18 years of age who is ill with a fever.] Avoid tobacco and alcohol consumption. These may worsen your symptoms. If medicines for diarrhea or vomiting were prescribed, take these only as directed. Never take these without a healthcare providers approval. During the first12 to 24hours follow the diet below: BEVERAGES: Sport drinks like Gatorade, soft drinks without caffeine; alejandra abilio, mineral water (plain or flavored), decaffeinated tea and coffee. SOUPS: Clear broth, consomm and bouillon DESSERTS: Plain gelatin (Jell-O), popsicles and fruit juice bars. During the next 24 hours you may add the following to the above: Hot cereal, plain toast, bread, rolls, crackers Plain noodles, rice, mashed potatoes, chicken noodle or rice soup Unsweetened canned fruit (avoid pineapple), bananas Limit fat intake to less than 15 grams per day by avoiding margarine, butter, oils, mayonnaise, sauces, gravies, fried foods, peanut butter, meat, poultry, and fish. Limit fiber; avoid raw or cooked vegetables, fresh fruits (except bananas) and bran cereals. Limit caffeine and chocolate. No spices or seasonings except salt. Gradually resume a normal diet as you feel better and your symptoms lessen. Follow Up with your doctor as advised if you are not better in 2 days. If a stool (diarrhea) sample was taken, you may call in 2 days (or as directed) for the results. Get Prompt Medical Attention if any of the following occur: Increasing abdominal pain or constant lower right abdominal pain Continued vomiting (unable to keep liquids down) Frequent diarrhea (more than 5 times a day) Blood in vomit or stool (black or red color) Signs of dehydration: increased thirst, dark urine, reduced or no urine output, dry mouth and tongue, tireness or weakness, dizziness when standing, rapid breathinng New rash Fever of 100.4F (38C) oral or higher, not better with fever medication Drug Abuse Use and abuse of such drugs as marijuana, amphetamines (speed, crank), cocaine, heroin or prescription pain medicines (Vicodin, codeine), sedatives and sleeping pills (Valium, Klonopin), PCP, mescaline and LSD may lead to addiction or dependence. Once this occurs, you are at greater risk for any of the following: Craving for the drug and unable to stop using the drug even though you think you want to stop (psychological dependence) Drug withdrawal symptoms if you stop taking the drug (physical dependence) Loss of your job or your family Arrest, conviction and retirement sentence for possession of an illegal substance or for driving under the influence of such a substance Accidental injuries to yourself or others while you are under the influence of the drug (in a car or at home). HIV infection (much greater risk if you use IV drugs) Other sexually transmitted diseases (herpes, chlamydia, gonorrhea and others) Severe and fatal infection of the heart valves (if you use IV drugs) Stroke, heart attack, hepatitis B or C, kidney failure from overdose Home Care: Admit you have a drug problem. Ask for help from your family and close friends. Seek professional help. This could be in the form of individual psychotherapy or counseling or an outpatient, inpatient, or residential drug treatment program. Join a self-help group for drug abuse. Avoid friends who abuse drugs themselves or tempt you to continue abusing drugs. Eat a balanced diet and begin a regular exercise program. Follow Up with your doctor or as advised by our staff. Contact one of the resources below for help. National [place] on Alcoholism and Drug Dependence www.ncadd.org 723-420-IXXS Narcotics Anonymous www.na.org 628-265-7404 National Alcohol and Substance Abuse Information Center (for referral to treatment programs) www.addictioncareDonnor[facility] Media.[place] 867-947-4848 Get Prompt Medical Attention if any of the following occur: Agitation, anxiety, unable to sleep Unintended weight loss (more than 10 to 15 pounds over 3 months) Seizure Chest pain Fever of 100.4F (38C) or higher, or as directed by your healthcare provider Excess drowsiness or inability to be awakened Shortness of breath Slow breathing under 8 breaths per minute Cough with colored sputum Redness, swelling or tenderness at an injection site Marijuana Abuse Marijuana is the most widely used illegal drug in the [place]. It is called by various names such as pot, weed, blunts, grass, reefer, ganja, hash, hashish. It is usually smoked but can be mixed with foods or brewed as a tea. It is sometimes sold with PCP (Eliceo Dust) or amphetamine mixed in it. These drugs can cause other harmful side effects. Marijuana can cause the following effects: Changes in mood (stimulated, happy, drowsy, depressed, paranoid) Hallucinations Increased heart rate and blood pressure Increased appetite Time distortion, difficulty concentrating, impaired memory Lung damage (similar to cigarettes with chronic cough, wheezing, frequent colds and bronchitis) You can become psychologically dependent on marijuana. That means the craving to use the drug is emotional or psychological rather than due to physical withdrawal. Is Marijuana Running Your Life? Here are some of the signs: Relying on marijuana to feel good, forget problems, deal with stress or to relax Wanting to be alone most of the time or only with others who use drugs Losing interest in things that used to be important Changes in school or job performance or attendance Spending a lot of time thinking about how to get marijuana Stealing or selling your things so you can buy marijuana Unable to stop using even though you may want to quit Increasing anxiety, anger,or depression Sleeping too much, changes in eating habits (weight loss or gain) Needing to use more to get the same effect Home Care Once you have become addicted to any drug, quitting is hard to do. Most people find they can't quit without help. So, dont try to do this alone. Talk to someone you trust who can support you. Seek professional help. Avoid people and places where drugs are used. That only increases the temptation to use. Follow Up with your doctor or as advised by our staff. For more information or a referral to a treatment center in your area, contact: Your local mental health center or the National Alcohol and Substance Abuse Information Center (988)-883-0196 www.addictioncareoptions.com National [place] on Alcoholism and Drug Dependence 727-338-UPCS www.ncadd.org Marijuana Anonymous 853-609-0711 www.marijuana-anonymous.org Get Prompt Medical Attention if any of the following occur: You feel extreme depression, fear, anxiety, or anger toward yourself or others You feel out of control You feel that you may try to harm yourself or another Clear Liquid Diet Clear liquids are any liquid that you can see through as well as those that are very easy to digest. This is used while the body is recovering from irritation or infection of the stomach or intestinal tract. It may also be used before special procedures or surgery. This diet is to be used no more than three days. You may include the following items. Adults Adults should drink a total of 23 quarts of liquid per day. It may be easier to drink small frequent servings rather than a few large ones. Liquids can include: Fruit juices.Strained orange juice or lemonade (no pulp), apple, grape and cranberry juice, clear fruit drinks, sports drinks Beverages.Sport drinks, sodas, mineral water (plain or flavored), tea, black coffee, liquid gelatin (add twice the recommended amount of water) Soups.Clear broth, consomm, bouillon Desserts.Plain gelatin, popsicles, fruit juice bars Children Over 2 years old The following liquids are acceptable for children over age 2: Fruit juices.Strained orange juice or lemonade (no pulp), apple, grape and cranberry juice, clear fruit drinks Beverages. Sports drinks, sodas, mineral water (plain or flavored), tea, liquid gelatin (add twice the recommended amount of water) Soups. Clear broth, consomm, bouillon Desserts. Plain gelatin, popsicles, fruit juice bars Children under 2 years old Oral rehydration fluids such are available at drug stores and most grocery stores without a prescription. Ondansetron Oral disintegrating tablet What is this medicine? ONDANSETRON (on KI se sherin) is used to treat nausea and vomiting caused by chemotherapy. It is also used to prevent or treat nausea and vomiting after surgery. How should I use this medicine? These tablets are made to dissolve in the mouth. Do not try to push the tablet through the foil backing. With dry hands, peel away the foil backing and gently remove the tablet. Place the tablet in the mouth and allow it to dissolve, then swallow. While you may take these tablets with water, it is not necessary to do so. Talk to your heating mechanic regarding the use of this medicine in children. Special care may be needed. What side effects may I notice from receiving this medicine? Side effects that you should report to your doctor or health child care coordinator as soon as possible: allergic reactions like skin rash, itching or hives, swelling of the face, lips, or tongue breathing problems dizziness fast or irregular heartbeat feeling faint or lightheaded, falls fever and chills swelling of the hands and feet tightness in the chest Side effects that usually do not require medical attention (report to your doctor or health child care coordinator if they continue or are bothersome): constipation or diarrhea headache What may interact with this medicine? Do not take this medicine with any of the following medications: -apomorphine -cisapride -dofetilide -dronedarone -pimozide -thioridazine -ziprasidone This medicine may also interact with the following medications: -carbamazepine -phenytoin -rifampicin -tramadol -other medicines that prolong the QT interval (cause an abnormal heart rhythm) What if I miss a dose? If you miss a dose, take it as soon as you can. If it is almost time for your next dose, take only that dose. Do not take double or extra doses. Where should I keep my medicine? Keep out of the reach of children. Store between 2 and 30 degrees C (36 and 86 degrees F). Throw away any unused medicine after the expiration date. What should I tell my health care provider before I take this medicine? They need to know if you have any of these conditions: heart disease history of irregular heartbeat liver disease low levels of magnesium or potassium in the blood an unusual or allergic reaction to ondansetron, granisetron, other medicines, foods, dyes, or preservatives or trying to get breast-feeding What should I watch for while using this medicine? Check with your doctor or health child care coordinator as soon as you can if you have any sign of an allergic reaction. You have been given the following additional information: Food Poisoning Or Gastroenteritis (6Y-Adult) Drug Abuse Marijuana Abuse Diet, Clear Liquid Ondansetron Oral disintegrating tablet Do not work for two days until better. (Electronically signed by Girma Rolon MD 09/23/2016 21:21)
--- NOTE | 2016-09-23 21:21 | ED MAR SUMMARY ---
..... Medication Administration Record [facility] [address] [place] [address] Patient: ALICE FERNANDEZ Visit ID: [id number] 40y, F Weight: 90.7 kg Height/Length: 66 in BMI: 32.3 ALLERGIES: Codeine, Penicillins Start 07:31 09/22/2016 Lachelle Welch R.N., Stop 09:00 09/22/2016 Lachelle Welch R.N. Medication Administered: IV NS (SALINE), Dose: IV Fluids over 1 hour(s), Rate: 999 mL/hr, Dispensed: 1000 mL bag, Site: #1 right AC. Medication Ordered: IV NS : initial bolus 1000 mL (1000 mL/hr), then 150 mL/hr for 4h (NOW); Urgent. Given 07:31 09/22/2016 Lachelle Welch R.N. Medication Administered: ZOFRAN [IVP] (ONDANSETRON HCL), Dose: 4 mg IVP over 1 minute(s), Site: #1 right AC. Medication Ordered: Zofran IV 4 mg (NOW).
== END 2016-09-22 10:38 | disposition home or self-care (01) ==
LOC: ED SRH 07:02
DX: K52.9 Noninfective gastroenteritis and colitis, unspecified (principal); F12.10 Cannabis abuse, uncomplicated; F15.10 Other stimulant abuse, uncomplicated; K21.9 Gastro-esophageal reflux disease without esophagitis; F17.210 Nicotine dependence, cigarettes, uncomplicated; Z88.0 Allergy status to penicillin; Z88.5 Allergy status to narcotic agent
CPT/HCPCS: 90004; 90100; 92235; 92530; 92760; 92761; 92762; 92763; 92764; 92765; 92766; 92767; 93070; 95059